=== PATIENT | male | born 1975 | race Caucasian/White ===

== ENCOUNTER 2017-07-13 19:53 | Emergency (ER) | payer MEDICAID ==
[2017-07-13 19:53] VITALS: BMI 33.6
[2017-07-13 19:59] VITALS: BP 127/85; PULSE 61; RESP 18; TEMP 97.9; O2SAT 98
--- NOTE | 2017-07-13 20:21 | ED PDOC ---
Arrival/HPI - General Chief Complaint: Chest Pain Time Seen by Provider: 07/13/17 19:55 - History of Present Illness Narrative History of Present Illness (Text): CC: Left sided chest pain and left arm pain This patient is a 42yo [place] male who is coming in for episodic chest pain on the left side, and left arm pain that he is unsure if the pain radiates to the arm or are two separate pains. He denies any diaphoresis, Nausea, vomiting, or diarrhea with chest pain, or shortness of breath. Denies smoking history. denies family history of CAD or heart attacks or at early age. Denies chest pain at this moment. When told that it would take approximately 1-2 hours to work up his chest pain, the patient immediately refused blood work and physical exam and requested to leave immediately. It was recommended that the patient stay in the hospital for blood work and serial monitoring of his troponins but he said his kids were waiting at home for him to eat and that he needed to leave. It was explained that he could drop in front of his children during dinner and the patient verbalized his understanding and continued desire to leave. The patient was not examined 2/2 to the conversation of urging him to stay. AMA form was signed. 07/13/17 20:21 EKG was done which shows Sinus Bradycardia with peaked T waves and signs of LVH which is changed from previous EKG recommended again for the patient to stay and he refused 07/13/17 20:23 Patient states he will have blood work drawn, and that he will return to the ER for further treatment. Past Medical History - Infectious Disease Hx of Infectious Diseases: None - Cardiac Hx Cardiac Disorders: Yes - Pulmonary Hx Respiratory Disorders: No - Neurological Hx Neurological Disorder: No - HEENT Hx HEENT Disorder: No - Renal Hx Renal Disorder: No - Endocrine/Metabolic Hx Endocrine Disorders: No - Hematological/Oncological Hx Blood Disorders: No - Integumentary Hx Dermatological Disorder: No - Musculoskeletal/Rheumatological Hx Musculoskeletal Disorders: No - Gastrointestinal Hx Gastrointestinal Disorders: No - Genitourinary/Gynecological Hx Genitourinary Disorders: No - Psychiatric Hx Psychophysiologic Disorder: No Hx Substance Use: No - Anesthesia Hx Anesthesia: No - Suicidal Assessment Feels Threatened In Home Enviroment: No Family/Social History - Physician Review Nursing Documentation Reviewed: Yes Family/Social History: No Known Family HX Smoking Status: Never Smoked Hx Alcohol Use: No Hx Substance Use: No Hx Substance Use Treatment: No Allergies/Home Meds Allergies/Adverse Reactions: Allergies No Known Allergies Allergy (Verified 07/13/17 19:56) Home Medications: Home Meds Medication Instructions Recorded Confirmed Atorvastatin [Lipitor] 10 mg PO DAILY 07/13/17 07/13/17 Physical Exam Vital Signs Temp Pulse Resp BP Pulse Ox 07/13/17 19:59 97.9 F 61 18 127/85 98 Disposition/Present on Arrival - Present on Arrival Any Indicators Present on Arrival: Yes History of DVT/PE: No History of Uncontrolled Diabetes: No Urinary Catheter: No History of Decub. Ulcer: No History Surgical Site Infection Following: None - Disposition Have Diagnosis and Disposition been Completed?: No Diagnosis: Chest pain Disposition: AGAINST MEDICAL ADVICE Disposition Time: 20:28 Patient Plan: Other (against medical advice) Condition: SERIOUS Discharge Instructions (ExitCare): Chest Pain (ED) Forms: [employer] (Setswana)
[2017-07-13 20:42] LABS: BASO # 0.03 K/mm3 (0.0-2.0); BASO % 0.4 % (0.0-3.0); EOS # 0.2 (0.0-0.7); EOS % 1.9 % (1.5-5.0); GRAN # 4.02 (1.4-6.5); GRAN % 50.7 % (50.0-68.0); HEMATOCRIT 40.8 % (42.0-52.0); LYMPH # 3.1 (1.2-3.4); LYMPH % 38.8 % (22.0-35.0); MEAN CELL VOLUME 78.8 fl (80.0-105.0); MEAN CORPUSCULAR HEMOGLOBIN 25.9 pg (25.0-35.0); MEAN CORPUSCULAR HGB CONC 32.8 g/dl (31.0-37.0); MEAN PLATELET VOLUME 10.4 fl (7.0-11.0); MONO # 0.7 (0.1-0.6); MONO % 8.2 % (1.0-6.0); RED CELL DISTRIBUTION WIDTH 13.6 % (11.5-14.5); WHITE BLOOD COUNT 7.9 10^3/ul (4.5-11.0)
[2017-07-13 20:57] LABS: ALB/GLOB RATIO 1.7 (1.1-1.8); ALKALINE PHOSPHATASE 69 U/L (38-126); ALT/SGPT 58 U/L (7-56); AST/SGOT 35 U/L (17-59); BILIRUBIN,TOTAL 0.8 mg/dL (0.2-1.3); BLOOD UREA NITROGEN 17 mg/dL (7-21); CARBON DIOXIDE 26 mmol/L (21-33); CHLORIDE 103 mmol/L (98-107); GFR AFRICAN-AMERICAN > 60; GLUCOSE,RANDOM 94 mg/dL (70-110); LIPASE 104 U/L (23-300); POTASSIUM 4.5 mmol/L (3.6-5.0); SODIUM 141 mmol/L (132-148); TOTAL PROTEIN 7.9 g/dL (5.8-8.3)
[2017-07-13 21:08] LABS: TROPONIN I < 0.01 ng/mL
--- NOTE | 2017-07-14 17:03 | CARD ---
APPROVED REPORT EKG Measurement Heart [id number] CO [id number] [id number] <Conclusion> Sinus bradycardia Voltage criteria for left ventricular hypertrophy Abnormal ECG
== END 2017-07-13 20:32 | disposition left against medical advice (07) ==
LOC: ED 19:53
DX: R07.9 Chest pain, unspecified (principal)